=== PATIENT | female | born 1965 | race Caucasian/White ===

== ENCOUNTER 2023-03-13 10:25 | Outpatient (OUT) | payer OTHER, SELFPAY ==
--- NOTE | 2023-03-13 10:31 | XR_ITS ---
[address] [address] Patient Name: BELLA CROWLEY MRN: [id number] date: 1965 Sex: F Assigned Patient Location: [facility] Current Patient Location: [facility] Accession/Order Number: [id number] Exam Date: 03/13/2023 10:31 Report Date: 03/13/2023 16:19 At the request of: AYAKA NEWELL Procedure: XR ankle RT min 3V PROCEDURE: XR ankle RT min 3V HISTORY: RIGHT ANKLE PAIN ; follow-up ankle fusion COMPARISON: XR ankle right 12/13/2022 FINDINGS: BONES:Mechanical fusion ankle joint and hindfoot via intramedullary solomon and locking screws. No hardware fracture loosening. Prior resection of distal fibula. SOFT TISSUES:No visible soft tissue swelling. EFFUSION:None visible. OTHER: Negative. IMPRESSION: 1. Stable surgical changes without evidence of hardware failure or change in alignment. Electronically authenticated by: SIDNEY LEARY Date: 03/13/2023 16:19
== END 2023-03-13 10:26 ==
LOC: RAD 10:27
PROVIDERS: PCP Family Medicine; Visit Provider Podiatrist Foot & Ankle Surgery
DX: M19.171 Post-traumatic osteoarthritis, right ankle and foot (principal)
CPT/HCPCS: 73610

== ENCOUNTER 2023-05-23 14:34 | Outpatient (OUT) | payer OTHER, SELFPAY ==
--- NOTE | 2023-05-23 14:37 | XR_ITS ---
The [address] [address] Patient Name: BELLA CROWLEY MRN: [id number] date: 1965 Sex: F Assigned Patient Location: [facility] Current Patient Location: Accession/Order Number: [id number] Exam Date: 05/23/2023 14:40 Report Date: 05/24/2023 07:38 At the request of: YUN SHEA Procedure: XR foot RT min 3V PROCEDURE: XR foot RT min 3V COMPARISON: None. HISTORY: RIGHT FOOT PAIN FINDINGS: BONES:No acute fracture or dislocation. Shortening of the fourth ray possibly representing developmental or posttraumatic change. Fusion of the hindfoot utilizing a retrograde intramedullary solomon and distally. [id number] degenerative changes of the midfoot SOFT TISSUES:Negative. No visible soft tissue swelling. EFFUSION:None visible. OTHER: Negative. XR/XR foot RT min 3V IMPRESSION: Degenerative and postsurgical changes Electronically authenticated by: ECHO HERNANDEZ Date: 05/24/2023 07:38
== END 2023-05-23 14:35 | disposition home or self-care (01) ==
LOC: RAD 14:35
PROVIDERS: PCP Family Medicine; Visit Provider Physician Assistant
DX: M79.671 Pain in right foot (principal)
CPT/HCPCS: 73630

== ENCOUNTER 2024-03-18 10:00 | Outpatient (OUT) | payer OTHER, SELFPAY ==
--- NOTE | 2024-03-18 | XR_ITS ---
[address] [address] Patient Name: BELLA CROWLEY MRN: [id number] date: 1965 Sex: F Assigned Patient Location: Current Patient Location: Accession/Order Number: [id number] Exam Date: 03/18/2024 10:01 Report Date: 03/18/2024 12:57 At the request of: AYAKA NEWELL Procedure: XR foot RT min 3V PROCEDURE: XR ankle RT min 3V, XR foot RT min 3V COMPARISON: 03/13/2023 HISTORY: RIGHT ANKLE F/U IMAGING FINDINGS: BONES:Stable ankle fusion with a retrograde intramedullary nail and proximally and distally. No acute fracture, dislocation or mechanical failure. Remote resection of the distal fibula. Mild degenerative changes of the SOFT TISSUES:Negative. No visible soft tissue swelling. EFFUSION:None visible. OTHER: Negative. XR/XR foot RT min 3V IMPRESSION: Stable ankle fusion with no mechanical failure Electronically authenticated by: ECHO HERNANDEZ Date: 03/18/2024 12:57
--- NOTE | 2024-03-18 | XR_ITS ---
[address] [address] Patient Name: BELLA CROWLEY MRN: [id number] date: 1965 Sex: F Assigned Patient Location: Current Patient Location: Accession/Order Number: [id number] Exam Date: 03/18/2024 10:01 Report Date: 03/18/2024 12:57 At the request of: AYAKA NEWELL Procedure: XR ankle RT min 3V PROCEDURE: XR ankle RT min 3V, XR foot RT min 3V COMPARISON: 03/13/2023 HISTORY: RIGHT ANKLE F/U IMAGING FINDINGS: BONES:Stable ankle fusion with a retrograde intramedullary nail and proximally and distally. No acute fracture, dislocation or mechanical failure. Remote resection of the distal fibula. Mild degenerative changes of the SOFT TISSUES:Negative. No visible soft tissue swelling. EFFUSION:None visible. OTHER: Negative. XR/XR ankle RT min 3V IMPRESSION: Stable ankle fusion with no mechanical failure Electronically authenticated by: ECHO HERNANDEZ Date: 03/18/2024 12:57
== END 2024-03-18 10:01 | disposition home or self-care (01) ==
LOC: EC 10:00
PROVIDERS: PCP Family Medicine; Visit Provider Podiatrist Foot & Ankle Surgery
DX: M19.171 Post-traumatic osteoarthritis, right ankle and foot (principal); Z98.890 Other specified postprocedural states
CPT/HCPCS: 73610; 73630